=== PATIENT | male | born 1965 | race Hispanic/Latino ===

== ENCOUNTER 2020-01-01 17:15 | Emergency (ER) | payer SELFPAY ==
--- NOTE | 2020-01-01 17:54 | Emergency Department Report ---
Blank Doc - Documentation Documentation: 54-year-old male that presents with left flank pain, abdominal pain, n/v. This initial assessment/diagnostic orders/clinical plan/treatment(s) is/are subject to change based on patient's health status, clinical progression and re- assessment by fellow clinical providers in the ED. Further treatment and workup at subsequent clinical providers discretion. Patient/guardians urged not to elope from the ED as their condition may be serious if not clinically assessed and managed. Initial orders include: 1- Patient sent to MAIN ED for further evaluation and treatment 2- labs 3- UA
[2020-01-01 17:55] VITALS: BP 163/88
[2020-01-01 18:19] LABS: Basophils # (Auto) 0.1 K/mm3 (0.0-0.1); Basophils % (Auto) 0.5 % (0.0-1.8); Eosinophils # (Auto) 0.4 K/mm3 (0.0-0.4); Eosinophils % (Auto) 2.9 % (0.0-4.3); Hematocrit 42.3 % (35.5-45.6); Hemoglobin 14.3 gm/dl (11.8-15.2); Lymphocytes # (Auto) 1.1 K/mm3 (1.2-5.4); Lymphocytes % (Auto) 9.3 % (13.4-35.0); Mean Corpuscular HGB Conc 34 % (32-34); Mean Corpuscular Volume 91 fl (84-94); Monocytes # (Auto) 0.9 K/mm3 (0.0-0.8); Monocytes % (Auto) 7.2 % (0.0-7.3); Platelet Count 301 K/mm3 (140-440); Red Blood Count 4.64 M/mm3 (3.65-5.03); Red Cell Distribution Width 13.6 % (13.2-15.2)
[2020-01-01 18:41] LABS: Albumin 4.1 g/dL (3.9-5); Calcium 9.3 mg/dL (8.4-10.2)
== END 2020-01-01 21:00 | disposition left against medical advice (07) ==
LOC: ED 17:15
DX: M54.9 Dorsalgia, unspecified (principal); Z53.21 Procedure and treatment not carried out due to patient leaving prior to being seen by health care provider
CPT/HCPCS: 36415; 80053; 83690; 85025

== ENCOUNTER 2020-04-07 01:47 | Emergency (ER) | payer SELFPAY ==
[2020-04-07 02:30] VITALS: BP 184/120
== END 2020-04-07 04:30 | disposition left against medical advice (07) ==
LOC: ED 01:47
DX: M79.604 Pain in right leg (principal); Z53.21 Procedure and treatment not carried out due to patient leaving prior to being seen by health care provider

== ENCOUNTER 2020-10-11 03:26 | Emergency (ER) | payer SELFPAY ==
[2020-10-11 04:03] VITALS: BP 211/122
== END 2020-10-11 07:00 | disposition left against medical advice (07) ==
LOC: ED 03:26
DX: R11.2 Nausea with vomiting, unspecified (principal); R19.7 Diarrhea, unspecified; Z53.21 Procedure and treatment not carried out due to patient leaving prior to being seen by health care provider

== ENCOUNTER 2021-04-01 07:09 | Emergency (ER) | payer SELFPAY ==
[2021-04-01] MEDS ORDERED: ONDANSETRON 4 MG/2 ML INJ IV ONE (07:20)
[2021-04-01] MEDS ORDERED: HYDROmorphone 1 MG/1 ML INJ IV ONE (07:20)
--- NOTE | 2021-04-01 07:26 | Emergency Department Report ---
HPI - General Chief Complaint: Abdominal Pain Time Seen by Provider: 04/01/21 07:11 - HPI HPI: Room 22 The patient is a 55-year-old male present with a chief complaint of abdominal pain. The patient states he developed epigastric abdominal pain and back pain approximately 30 to 40 minutes ago. Patient has nausea but denies vomiting. Patient states his last bowel movement occurred yesterday morning. Patient is moaning on the stretcher making obtaining history difficult. ED Past Medical Hx - Past Medical History Previous Medical History?: Yes Hx Hypertension: Yes Additional medical history: RENAL COLIC - Surgical History Past Surgical History?: No - Family History Family history: no significant - Social History Smoking Status: Current Every Day Smoker Substance Use Type: Alcohol (Rarely), Methamphetamines - Medications Home Medications: Home Medications Medication Instructions Recorded Confirmed Last Taken Type HYDROcodone/APAP 5-325 [[place] 1 - 2 each PO Q6HR PRN #20 tablet 04/16/14 Unknown Rx 5/325] Promethazine [Phenergan] 25 mg PO Q6H PRN #20 tablet 04/16/14 Unknown Rx Promethazine [Phenergan] 25 mg NH Q6HR PRN #10 supp.rect 04/16/14 Unknown Rx Cyclobenzaprine [Flexeril] 10 mg PO TID PRN #15 tablet 12/01/15 Unknown Rx Ibuprofen [Motrin 800 MG tab] 800 mg PO TID PRN #20 tablet 12/01/15 Unknown Rx Amoxicillin/Potassium Clav 1 each PO BID #20 tablet 04/25/18 Unknown Rx [Augmentin 875-125 Tablet] Dicyclomine [Bentyl] 20 mg PO QID #20 tablet 04/25/18 Unknown Rx Omeprazole 40 mg PO DAILY #20 capsule.dr 04/25/18 Unknown Rx Ondansetron [Zofran ODT TAB] 8 mg PO Q12HR #14 tab.rapdis 04/25/18 Unknown Rx amLODIPine 5 mg PO DAILY #30 tab 04/25/18 Unknown Rx metroNIDAZOLE [Flagyl] 500 mg PO BID #20 tab 04/25/18 Unknown Rx hydroCHLOROthiazide [HCTZ] 25 mg PO QDAY #30 tablet 08/12/19 Unknown Rx lisinopriL [Zestril TAB] 20 mg PO QDAY #30 tablet 08/12/19 Unknown Rx Famotidine [Pepcid] 20 mg PO BID #30 tablet 04/01/21 Unknown Rx HYDROcodone/APAP 5-325 [[place] 1 - 2 each PO Q6HR PRN #10 tablet 04/01/21 Unknown Rx 5/325] Promethazine [Phenergan] 25 mg PO Q6HR PRN #20 tab 04/01/21 Unknown Rx Promethazine [Phenergan] 25 mg NH Q6HR PRN #5 supp.rect 04/01/21 Unknown Rx ED Review of Systems ROS: Stated complaint: SEVERE ABDOMINAL PAIN Other details as noted in HPI Constitutional: denies: fever Respiratory: no symptoms reported Cardiovascular: denies: chest pain Endocrine: no symptoms reported Gastrointestinal: abdominal pain, nausea. denies: vomiting, constipation Genitourinary: denies: dysuria Musculoskeletal: back pain Neurological: denies: headache Physical Exam - Physical Exam Physical Exam: GENERAL: The patient is well-developed well-nourished male lying on stretcher appearing to be in moderate discomfort. [] HEENT: Normocephalic. Atraumatic. Extraocular motions are intact. Patient has moist mucous membranes. NECK: Supple. Trachea midline CHEST/LUNGS: Clear to auscultation. There is no respiratory distress noted. HEART/CARDIOVASCULAR: Regular. There is no tachycardia. There is no gallop rub or murmur. ABDOMEN: Abdomen is soft, with tenderness to palpation in the right upper quadrant, midepigastric and left upper quadrant. Patient has normal bowel sounds. There is no abdominal distention. SKIN: There is no rash. There is no edema. There is no diaphoresis. NEURO: The patient is awake, alert, and oriented. The patient is cooperative. The patient has no focal neurologic deficits. The patient has normal speech. GCS 15 MUSCULOSKELETAL: There is no evidence of acute injury. ED Medical Decision Making - Lab Data Result diagrams: 04/01/21 07:29 04/01/21 07:29 Laboratory Tests 04/01/21 04/01/21 04/01/21 07:29 07:29 07:29 WBC 9.5 RBC 4.82 Hgb 14.6 Hct 43.9 MCV 91 MCH 30 MCHC 33 RDW 14.0 Plt Count 300 Lymph % (Auto) 22.7 [place] % (Auto) 7.4 H Eos % (Auto) 6.6 H Baso % (Auto) 1.1 Lymph # (Auto) 2.2 [place] # (Auto) 0.7 Eos # (Auto) 0.6 H Baso # (Auto) 0.1 Seg Neutrophils % 62.2 Seg Neutrophils # 5.9 PT 13.3 INR 0.91 APTT 30.6 Sodium 136 L Potassium 4.2 Chloride 101.4 Carbon Dioxide 20 L Anion Gap 19 BUN 25 H Creatinine 1.4 H Estimated GFR 52 BUN/Creatinine Ratio 18 Glucose 152 H Lactic Acid Calcium 9.3 Total Bilirubin 0.30 AST 16 ALT 17 Alkaline Phosphatase 92 Total Creatine Kinase CK-MB (CK-2) CK-MB (CK-2) Rel Index Troponin T Total Protein 7.6 Albumin 4.3 Albumin/Globulin Ratio 1.3 Lipase 35 Urine Color Urine Turbidity Urine pH Ur Specific [place] Urine Protein Urine Glucose (UA) Urine Ketones Urine Blood Urine Nitrite Urine Bilirubin Urine Urobilinogen Ur Leukocyte Esterase Urine WBC (Auto) Urine RBC (Auto) Hyaline Casts Urine Mucus Blood Type Antibody Screen 04/01/21 04/01/21 04/01/21 07:29 07:29 07:29 WBC RBC Hgb Hct MCV MCH MCHC RDW Plt Count Lymph % (Auto) [place] % (Auto) Eos % (Auto) Baso % (Auto) Lymph # (Auto) [place] # (Auto) Eos # (Auto) Baso # (Auto) Seg Neutrophils % Seg Neutrophils # PT INR APTT Sodium Potassium Chloride Carbon Dioxide Anion Gap BUN Creatinine Estimated GFR BUN/Creatinine Ratio Glucose Lactic Acid 2.40 H* Calcium Total Bilirubin AST ALT Alkaline Phosphatase Total Creatine Kinase 80 CK-MB (CK-2) 4.5 H CK-MB (CK-2) Rel Index 5.6 H Troponin T < 0.010 Total Protein Albumin Albumin/Globulin Ratio Lipase Urine Color Urine Turbidity Urine pH Ur Specific [place] Urine Protein Urine Glucose (UA) Urine Ketones Urine Blood Urine Nitrite Urine Bilirubin Urine Urobilinogen Ur Leukocyte Esterase Urine WBC (Auto) Urine RBC (Auto) Hyaline Casts Urine Mucus Blood Type O POSITIVE Antibody Screen Negative 04/01/21 04/01/21 10:20 13:00 WBC RBC Hgb Hct MCV MCH MCHC RDW Plt Count Lymph % (Auto) [place] % (Auto) Eos % (Auto) Baso % (Auto) Lymph # (Auto) [place] # (Auto) Eos # (Auto) Baso # (Auto) Seg Neutrophils % Seg Neutrophils # PT INR APTT Sodium Potassium Chloride Carbon Dioxide Anion Gap BUN Creatinine Estimated GFR BUN/Creatinine Ratio Glucose Lactic Acid 1.40 Calcium Total Bilirubin AST ALT Alkaline Phosphatase Total Creatine Kinase CK-MB (CK-2) CK-MB (CK-2) Rel Index Troponin T Total Protein Albumin Albumin/Globulin Ratio Lipase Urine Color Yellow Urine Turbidity Clear Urine pH 5.0 Ur Specific [place] 1.028 Urine Protein <15 mg/dl Urine Glucose (UA) Neg Urine Ketones Neg Urine Blood Neg Urine Nitrite Neg Urine Bilirubin Neg Urine Urobilinogen < 2.0 Ur Leukocyte Esterase Neg Urine WBC (Auto) < 1.0 Urine RBC (Auto) < 1.0 Hyaline Casts 7 Urine Mucus Few Blood Type Antibody Screen - EKG Data -: EKG Interpreted by Me EKG shows normal: sinus rhythm Rate: normal - EKG Data When compared to previous EKG there are: previous EKG unavailable Interpretation: nonspecific ST-T wave ale - Radiology Data Radiology results: report reviewed (Chest x-ray, CTA abdomen pelvis), image reviewed (Chest x-ray, CTA abdomen pelvis) interpreted by me: Chest x-ray-no definite focal infiltrates, no pneumothorax [address] [address] XRay Report Signed Patient: LEX SMITH MR#: [id number] : 1965 Acct:[id number] Age/Sex: 55 / M ADM Date: 04/01/21 Loc: ED Attending Dr: Ordering Physician: LIZETT DEVRIES MD Date of Service: 04/01/21 Procedure(s): XR chest 1V ap Accession Number(s): [id number] cc: LIZETT DEVRIES MD Fluoro Time In Minutes: XR chest 1V ap INDICATION / CLINICAL INFORMATION: Epigastric pain. COMPARISON: None available. FINDINGS: SUPPORT DEVICES: None. HEART /PULMONARY VASCULATURE: Cardiac silhouette is enlarged without significant pulmonary vasculature congestion. LUNGS / PLEURA: Mild asymmetric interstitial opacities within the right lung. Left lung is clear. No sizable pleural effusion. No pneumothorax. ADDITIONAL FINDINGS: No significant additional findings. IMPRESSION: Mild asymmetric interstitial opacity in the right lung, may reflect atelectasis, asymmetric edema, or developing interstitial infiltrate. Signer Name: David Nance MD Signed: 04/01/2021 7:48 AM Workstation Name: [id number] Transcribed By: MARCELLE Dictated By: DAVID NANCE MD Electronically Authenticated By: DAVID NANCE MD Signed Date/Time: 04/01/21747 DD/ 7 TD/TT: Print Cancel [facility] [address] [place] [address] Cat Scan Report Signed Patient: ELX SMITH MR#: [id number] : 1965 Acct:[id number] Age/Sex: 55 / M ADM Date: 04/01/21 Loc: ED Attending Dr: Ordering Physician: LIZETT DEVRIES MD Date of Service: 04/01/21 Pr ocedure(s): CT angio abdomen pelvis Accession Number(s): [id number] cc: LIZETT DEVRIES MD CTA ABDOMEN AND PELVIS INDICATION / CLINICAL INFORMATION: Epigastric and back pain OMNI 350 100ML. TECHNIQUE: Axial CT images were obtained through the abdomen and pelvis after after injection of IV contrast. 3 plane MIP / 3D reconstructions were produced. All CT scans at this location are performed using CT dose reduction for ALARA by means of automated exposure control. COMPARISON: CT abdomen and pelvis 04/16/2014 FINDINGS: AORTA: No significant abnormality. RENAL ARTERIES: No significant abnormality. CELIAC ARTERY: No significant abnormality. SUPERIOR MESENTERIC ARTERY: No significant abnormality. INFERIOR MESENTERIC ARTERY: No significant abnormality. RIGHT ILIAC ARTERIES: No significant abnormality.. LEFT ILIAC ARTERIES: No significant abnormality.. ADDITIONAL FINDINGS: No acute abnormality identified within the abdomen or pelvis. Colonic diverticulosis without evidence of diverticulitis. SKELETAL: Moderate multilevel degenerative changes of the thoracolumbar spine. IMPRESSION: 1. No significant abnormality. Signer Name: Roberto Fuchs MD Signed: 04/01/2021 10:03 AM Workstation Name: [id number] Transcribed By: SB Dictated By: ROBERTO FUCHS MD Electronically Authenticated By: ROBERTO FUCHS MD Signed Date/Time: 04/01/21 1003 DD/ 7 TD/TT: Print Cancel - Differential Diagnosis Aortic dissection, aortic aneurysm, pancreatitis, peptic ulcer disease, gas Critical care attestation.: If time is entered above; I have spent that time in minutes in the direct care of this critically ill patient, excluding procedure time. ED Disposition Clinical Impression: Acute abdominal pain, Gastritis Disposition: HOME / SELF CARE / HOMELESS Is pt being admited?: No Does the pt Need Aspirin: No Condition: Stable Instructions: Gastritis, Adult, Abdominal Pain, Adult Additional Instructions: Return to the emergency department should you develop worsening symptoms, inability to tolerate food or liquids, high fever or any other concerns Prescriptions: HYDROcodone/APAP 5-325 [[place] 5/325] 1 - 2 each PO Q6HR PRN #10 tablet PRN Reason: Pain Famotidine [Pepcid] 20 mg PO BID #30 tablet Promethazine [Phenergan] 25 mg PO Q6HR PRN #20 tab PRN Reason: Nausea Promethazine [Phenergan] 25 mg NH Q6HR PRN #5 supp.rect PRN Reason: Vomiting Referrals: [facility] [Provider Group] - 3-5 Days Time of Disposition: 13:58
--- NOTE | 2021-04-01 07:53 | XRay Report ---
XR chest 1V ap INDICATION / CLINICAL INFORMATION: Epigastric pain. COMPARISON: None available. FINDINGS: SUPPORT DEVICES: None. HEART /PULMONARY VASCULATURE: Cardiac silhouette is enlarged without significant pulmonary vasculatur e congestion. LUNGS / PLEURA: Mild asymmetric interstitial opacities within the right lung. Left lung is clear. No sizable pleural effusion. No pneumothorax. ADDITIONAL FINDINGS: No significant additional findings. IMPRESSION: Mild asymmetric interstitial opacity in the right lung, may reflect atelectasis, asymmetric edema, or developing interstitial infiltrate. Signer Name: Aleksandar Nance MD Signed: 04/01/2021 7:48 AM Workstation Name: [id number]
[2021-04-01 07:56] LABS: Basophils # (Auto) 0.1 K/mm3 (0.0-0.1); Basophils % (Auto) 1.1 % (0.0-1.8); Eosinophils # (Auto) 0.6 K/mm3 (0.0-0.4); Eosinophils % (Auto) 6.6 % (0.0-4.3); Hematocrit 43.9 % (35.5-45.6); Hemoglobin 14.6 gm/dl (11.8-15.2); Lymphocytes # (Auto) 2.2 K/mm3 (1.2-5.4); Lymphocytes % (Auto) 22.7 % (13.4-35.0); Mean Corpuscular HGB Conc 33 % (32-34); Mean Corpuscular Volume 91 fl (84-94); Monocytes # (Auto) 0.7 K/mm3 (0.0-0.8); Monocytes % (Auto) 7.4 % (0.0-7.3); Platelet Count 300 K/mm3 (140-440); Red Blood Count 4.82 M/mm3 (3.65-5.03)
[2021-04-01 08:05] LABS: INR 0.91 (0.87-1.13)
[2021-04-01 08:06] LABS: Partial Thromboplastin Time 30.6 Sec. (24.2-36.6)
[2021-04-01 08:14] LABS: Creatine Kinase MB 4.5 ng/mL (0.0-4.0)
[2021-04-01 08:15] LABS: Albumin 4.3 g/dL (3.9-5); Calcium 9.3 mg/dL (8.4-10.2)
--- NOTE | 2021-04-01 10:07 | Cat Scan Report ---
CTA ABDOMEN AND PELVIS INDICATION / CLINICAL INFORMATION: Epigastric and back pain OMNI 350 100ML. TECHNIQUE: Axial CT images were obtained through the abdomen and pelvis after after injection of IV c ontrast. 3 plane MIP / 3D reconstructions were produced. All CT scans at this location are performed using CT dose reduction for ALARA by means of automated exposure control. COMPARISON: CT abdomen and pelvis 04/16/2014 FINDINGS: AORTA: No significant abnormality. RENAL ARTERIES: No significant abnormality. CELIAC ARTERY: No significant abnormality. SUPERIOR MESENTERIC ARTERY: No significant abnormality. INFERIOR MESENTERIC ARTERY: No significant abnormality. RIGHT ILIAC ARTERIES: No significant abnormality.. LEFT ILIAC ARTERIES: No significant abnormality.. ADDITIONAL FINDINGS: No acute abnormality identified within the abdomen or pelvis. Colonic diverticul osis without evidence of diverticulitis. SKELETAL: Moderate multilevel degenerative changes of the thoracolumbar spine. IMPRESSION: 1. No significant abnormality. Signer Name: Roberto Fuchs MD Signed: 04/01/2021 10:03 AM Workstation Name: [id number]
[2021-04-01] MEDS ORDERED: SODIUM CHLORIDE 0.9% 1000 ML 1,000 ML IV ONE ×2 (10:20→11:28)
[2021-04-01 10:41] LABS: Bilirubin,Urine NEG (Negative); Blood,Urine NEG (Negative); Color,Urine Yellow (Yellow); Hyaline Casts,Urine 7 /LPF; Mucus,Urine FEW /HPF; Protein,Urine <15 mg/dL mg/dL (Negative); RBC,Urine < 1.0 /HPF (0.0-6.0); Urobilinogen,Urine < 2.0 mg/dL (<2.0); WBC,Urine < 1.0 /HPF (0.0-6.0)
[2021-04-01 14:04] VITALS: BP 155/87
== END 2021-04-01 14:10 | disposition home or self-care (01) ==
LOC: ED 07:09
DX: K29.70 Gastritis, unspecified, without bleeding (principal); I10 Essential (primary) hypertension; F17.200 Nicotine dependence, unspecified, uncomplicated
CPT/HCPCS: 36415; 71045; 74174; 80053; 81001; 82140; 82550; 82553; 83690; 84484; 85025; 85610; 85730; 86850; 86900; 86901; 93005; 96361; 96374; 96375; 99284; J1170; J2405; J7030; Q9967; Q0162

== ENCOUNTER 2021-07-20 04:04 | Emergency (ER) | payer SELFPAY | END 2021-07-20 13:26 | disposition left against medical advice (07) | LOC: ED 04:04 → EDSTATUS 04:04 → ED 13:26 | DX: M79.603 Pain in arm, unspecified (principal); I10 Essential (primary) hypertension; Z53.21 Procedure and treatment not carried out due to patient leaving prior to being seen by health care provider ==

== ENCOUNTER 2022-01-24 12:53 | Emergency (ER) | payer SELFPAY ==
[2022-01-24 12:59] VITALS: BP 215/118
--- NOTE | 2022-01-24 13:01 | Emergency Department Report ---
Stated Complaint: GALLBLADDER - HPI History of Present Illness: 56 Y M with gallbladder pain , known stoness. has gallbladder flare up was 1.5 month ago. patient has nausea and vomiting. - ROS Review of Systems: RUQ pain , nausea and vomiting - Exam Vital Signs: Vital Signs 01/24/22 12:57 Temperature 98.9 F Pulse Rate 70 Respiratory 22 Rate Blood Pressure 215/118 [Right] O2 Sat by Pulse 100 Oximetry Physical Exam: patient nausea with no vomiting in triage. RUQ pain tenderness noted. MSE screening note: Focused history and physical exam performed. Due to findings the following was ordered: orders placed, pending room assignment for further eval. ED Disposition for MSE Condition: Stable
--- NOTE | 2022-01-24 13:52 | Ultrasound Report ---
ULTRASOUND ABDOMEN, LIMITED INDICATION / CLINICAL INFORMATION: RUQ and epigastric pain - hx of stones. COMPARISON: CT 2020 FINDINGS: PANCREAS: Not well visualized or evaluated. LIVER: Coarse/increased echotexture diffusely. Portal vein is not well visualized or evaluated. GALLBLADDER: Echogenic stone at the gallbladder neck measuring 15 mm. No pericholecystic fluid, howev er there is suggestion of possible wall thickening. The medical assembler reports a positive Shi sign. BILE DUCTS: No significant abnormality. Common bile duct measures 6 mm. FREE FLUID: None. ADDITIONAL FINDINGS: None. IMPRESSION: 1. Cholelithiasis with suggestion of gallbladder wall thickening as well as a reported positive sonog raphic Shi's sign, constellation of findings concerning for cholecystitis. Surgical evaluation is recommended. 2. Coarse/increased hepatic echotexture which is nonspecific although most commonly seen steatosis. 2. Pancreas and portal vein not well visualized or evaluated. Signer Name: Esperanza Galarza MD Signed: 01/24/2022 1:48 PM Workstation Name: [id number]
[2022-01-24 14:16] LABS: Basophils # (Auto) 0.1 K/mm3 (0.0-0.1); Eosinophils # (Auto) 0.4 K/mm3 (0.0-0.4); Eosinophils % (Auto) 4.2 % (0.0-4.3); Hemoglobin 15.5 gm/dl (11.8-15.2); Lymphocytes # (Auto) 1.7 K/mm3 (1.2-5.4); Mean Corpuscular HGB Conc 34 % (32-34); Mean Corpuscular Volume 90 fl (84-94); Monocytes # (Auto) 0.7 K/mm3 (0.0-0.8); Monocytes % (Auto) 6.6 % (0.0-7.3); Platelet Count 278 K/mm3 (140-440); Red Blood Count 5.14 M/mm3 (3.65-5.03); Red Cell Distribution Width 13.5 % (13.2-15.2)
[2022-01-24 14:38] LABS: Albumin 4.7 g/dL (3.9-5); Calcium 10.3 mg/dL (8.4-10.2)
== END 2022-01-25 09:06 | disposition left against medical advice (07) ==
LOC: ED 12:53
DX: K80.20 Calculus of gallbladder without cholecystitis without obstruction (principal)
CPT/HCPCS: 36415; 76705; 80053; 83690; 85025; 99283